=== PATIENT | male | born 1955 | race Caucasian/White ===

== ENCOUNTER 2020-10-16 19:08 | Emergency (ER) | payer BC ==
[2020-10-16 19:20] VITALS: PULSE 62; RESP 16; TEMP 97.8
[2020-10-16 19:22] VITALS: BP 124/74
[2020-10-16] MEDS: HYDROmorphone 0.5 MG/0.5 ML SYRINGE IVP STA ×2 (19:23→19:54)
--- NOTE | 2020-10-16 19:27 | XR ---
EXAMINATION TYPE: XR pelvis AP view DATE OF EXAM: 10/16/2020 COMPARISON: NONE HISTORY: Fall. Pain. TECHNIQUE: Single view FINDINGS: There is deformity of the right superior and inferior pubic rami bilaterally. The sacroilia c joints are normal. There is cortical step deformity. Proximal femurs are intact. IMPRESSION: Bilateral superior and inferior nondisplaced pubic rami fractures.
--- NOTE | 2020-10-16 19:29 | XR ---
EXAMINATION TYPE: XR chest 1V portable DATE OF EXAM: 10/16/2020 COMPARISON: 09/17/2015 HISTORY: Chest pain TECHNIQUE: FINDINGS: There is no heart failure nor confluent pneumonic infiltrate. Costophrenic angles are clear . There are calcified granulomata at the pulmonary leisa. Bony thorax is intact. IMPRESSION: No active cardiopulmonary disease. No evidence of pneumothorax. No change.
--- NOTE | 2020-10-16 19:40 | ED ---
General Adult HPI - General Chief complaint: Trauma Stated complaint: Fall from Tree Stand Time Seen by Provider: 10/16/20 19:12 Source: patient, EMS, RN notes reviewed, old records reviewed Mode of arrival: EMS Limitations: physical limitation - History of Present Illness Initial comments: 65-year-old male presenting status post fall from a tree stand. Estimated approximate height was 16 feet. Patient fell onto his right side, he is complaining of left upper abdominal pain and severe low back pain. He was transported in a c-collar by EMS. There is no reported medical problems, no anticoagulation. No loss of consciousness. Patient has no neck pain. His main complaint is low back pain. Apparently EMS was able to move and feel both lower extremities but extraction was prolonged due to the location of his injury. - Related Data Home Medications Medication Instructions Recorded Confirmed No Known Home Medications 10/16/20 10/16/20 Allergies Allergy/AdvReac Type Severity Reaction Status Date / Time No Known Allergies Allergy Verified 10/16/20 20:23 Review of Systems ROS Statement: Those systems with pertinent positive or pertinent negative responses have been documented in the HPI. ROS Other: All systems not noted in ROS Statement are negative. Past Medical History Past Medical History: No Reported History History of Any Multi-Drug Resistant Organisms: None Reported Past Surgical History: Unable to Obtain Smoking Status: Never smoker Past Alcohol Use History: None Reported Past Drug Use History: None Reported General Exam Limitations: physical limitation General appearance: alert, in no apparent distress Head exam: Present: atraumatic, normocephalic Eye exam: Present: normal appearance, PERRL, other (Dried blood from a superficial laceration nasal bridge) ENT exam: Present: normal exam Neck exam: Present: other. Absent: tenderness (C-collar placed by EMS) Respiratory exam: Present: normal lung sounds bilaterally. Absent: respiratory distress, chest wall tenderness Cardiovascular Exam: Present: regular rate, normal rhythm GI/Abdominal exam: Present: soft, tenderness (Minimal left upper quadrant tenderness), other (Pelvis is stable). Absent: distended Extremities exam: Present: normal inspection, normal capillary refill, other (Distal pulses intact) Back exam: Present: tenderness, paraspinal tenderness (Severe lower thoracic and lumbar tenderness ), vertebral tenderness (No step-off.) Neurological exam: Present: alert, oriented X3. Absent: motor sensory deficit Psychiatric exam: Present: normal affect, normal mood Skin exam: Present: warm, dry, intact Course Vital Signs 10/16/20 19:16 Temperature 97.8 F Pulse Rate 62 Respiratory 16 Rate Blood Pressure 124/74 O2 Sat by Pulse 96 Oximetry - Reevaluation(s) Reevaluation #1: 10/16/20 19:39 Patient states his tetanus is 1-year-old. Reevaluation #2: 10/16/201904 Case discussed with the trauma surgeon on-call Dr. Grullon. Reevaluation #3: 10/16/202013 Case discussed with Dr. Reinoso for covering for orthopedics, multiple discussions had regarding whether this patient should be transferred, ultimately felt that this patient would benefit from trauma orthopedic evaluation. Reevaluation #4: 10/16/202053 Case discussed with Dr. Greenwood covering for orthopedic trauma, will accept transfer to [facility] EKG Findings - EKG Comments: EKG Findings:: Sinus rhythm, inferior infarct, rate of 64, WI interval 200, QRS duration 80, QTC 416 Medical Decision Making - Medical Decision Making 65-year-old male status post fall from a tree stand. Workup is initiated as a priority 2 trauma. Patient has chest x-ray which is negative for traumatic injury, no displaced rib fractures, no pneumothorax or hemothorax. X-ray of the pelvis shows bilateral pubic rami fracture. CT brain negative for intracranial hemorrhage and CT cervical spine negative for fracture subluxation. CT of the chest and pelvis shows lumbar 1 mm subluxation L3 on L4, no acute fracture or dislocation. There is bilateral pubic rami fracture as well as fracture of the sacrum. There is adjacent hematoma measuring up to 2.[address] I discussed case both with orthopedics at this institution as well as trauma orthopedics at [facility] Dr. Greenwood. Patient will be transferred for further evaluation and treatment. Patient does have elevated white blood cell count 19, likely reactive. Stable hemoglobin, he has a mild transaminitis, he has microscopic hematuria with 95 red cells. He has been hemodynamically stable throughout his stay in the emergency department. He will be transferred to [facility]. - Lab Data Result diagrams: 10/16/20 19:23 10/16/20 19:23 Lab Results 10/16/20 10/16/20 10/16/20 Range/Units 19:23 19:23 19:23 WBC 19.2 H (3.8-10.6) k/uL RBC 5.12 (4.30-5.90) m/uL Hgb 15.9 (13.0-17.5) gm/dL Hct 48.2 (39.0-53.0) % MCV 94.1 (80.0-100.0) fL MCH 31.0 (25.0-35.0) pg MCHC 33.0 (31.0-37.0) g/dL RDW 13.1 (11.5-15.5) % Plt Count 233 (150-450) k/uL MPV 7.1 Neutrophils % 84 % Lymphocytes % 9 % Monocytes % 4 % Eosinophils % 1 % Basophils % 1 % Neutrophils # 16.2 H (1.3-7.7) k/uL Lymphocytes # 1.7 (1.0-4.8) k/uL Monocytes # 0.8 (0-1.0) k/uL Eosinophils # 0.1 (0-0.7) k/uL Basophils # 0.2 (0-0.2) k/uL PT 10.7 (9.0-12.0) sec INR 1.0 (<1.2) APTT 22.4 (22.0-30.0) sec Sodium 136 L (137-145) mmol/L Potassium 4.3 (3.5-5.1) mmol/L Chloride 106 (98-107) mmol/L Carbon Dioxide 25 (22-30) mmol/L Anion Gap 5 mmol/L BUN 15 (9-20) mg/dL Creatinine 0.89 (0.66-1.25) mg/dL Est GFR (CKD-EPI)AfAm >90 (>60 ml/min/1.73 sqM) Est GFR (CKD-EPI)NonAf >90 (>60 ml/min/1.73 sqM) Glucose 149 H (74-99) mg/dL Calcium 8.8 (8.4-10.2) mg/dL Total Bilirubin 1.1 (0.2-1.3) mg/dL AST 86 H (17-59) U/L ALT 67 H (4-49) U/L Alkaline Phosphatase 65 (38-126) U/L Troponin I (0.000-0.034) ng/mL Total Protein 7.1 (6.3-8.2) g/dL Albumin 4.0 (3.5-5.0) g/dL Urine Color Urine Appearance (Clear) Urine pH (5.0-8.0) Ur Specific Frierson (1.001-1.035) Urine Protein (Negative) Urine Glucose (UA) (Negative) Urine Ketones (Negative) Urine Blood (Negative) Urine Nitrite (Negative) Urine Bilirubin (Negative) Urine Urobilinogen (<2.0) mg/dL Ur Leukocyte Esterase (Negative) Urine RBC (0-5) /hpf Urine WBC (0-5) /hpf Ur Squamous Epith Cells (0-4) /hpf Urine Bacteria (None) /hpf Hyaline Casts (0-2) /lpf Urine Mucus (None) /hpf Urine Opiates Screen (NotDetected) Ur Oxycodone Screen (NotDetected) Urine Methadone Screen (NotDetected) Ur Propoxyphene Screen (NotDetected) Ur Barbiturates Screen (NotDetected) U Tricyclic Antidepress (NotDetected) Ur Phencyclidine Scrn (NotDetected) Ur Amphetamines Screen (NotDetected) U Methamphetamines Scrn (NotDetected) U Benzodiazepines Scrn (NotDetected) Urine Cocaine Screen (NotDetected) U Marijuana (THC) Screen (NotDetected) Serum Alcohol <10 mg/dL Blood Type Blood Type Confirm Blood Type Recheck Bld Type Recheck Status Antibody Screen Spec Expiration Date 10/16/20 10/16/20 10/16/20 Range/Units 19:23 19:23 19:26 WBC (3.8-10.6) k/uL RBC (4.30-5.90) m/uL Hgb (13.0-17.5) gm/dL Hct (39.0-53.0) % MCV (80.0-100.0) fL MCH (25.0-35.0) pg MCHC (31.0-37.0) g/dL RDW (11.5-15.5) % Plt Count (150-450) k/uL MPV Neutrophils % % Lymphocytes % % Monocytes % % Eosinophils % % Basophils % % Neutrophils # (1.3-7.7) k/uL Lymphocytes # (1.0-4.8) k/uL Monocytes # (0-1.0) k/uL Eosinophils # (0-0.7) k/uL Basophils # (0-0.2) k/uL PT (9.0-12.0) sec INR (<1.2) APTT (22.0-30.0) sec Sodium (137-145) mmol/L Potassium (3.5-5.1) mmol/L Chloride (98-107) mmol/L Carbon Dioxide (22-30) mmol/L Anion Gap mmol/L BUN (9-20) mg/dL Creatinine (0.66-1.25) mg/dL Est GFR (CKD-EPI)AfAm (>60 ml/min/1.73 sqM) Est GFR (CKD-EPI)NonAf (>60 ml/min/1.73 sqM) Glucose (74-99) mg/dL Calcium (8.4-10.2) mg/dL Total Bilirubin (0.2-1.3) mg/dL AST (17-59) U/L ALT (4-49) U/L Alkaline Phosphatase (38-126) U/L Troponin I <0.012 (0.000-0.034) ng/mL Total Protein (6.3-8.2) g/dL Albumin (3.5-5.0) g/dL Urine Color Urine Appearance (Clear) Urine pH (5.0-8.0) Ur Specific Fri[place] (1.001-1.035) Urine Protein (Negative) Urine Glucose (UA) (Negative) Urine Ketones (Negative) Urine Blood (Negative) Urine Nitrite (Negative) Urine Bilirubin (Negative) Urine Urobilinogen (<2.0) mg/dL Ur Leukocyte Esterase (Negative) Urine RBC (0-5) /hpf Urine WBC (0-5) /hpf Ur Squamous Epith Cells (0-4) /hpf Urine Bacteria (None) /hpf Hyaline Casts (0-2) /lpf Urine Mucus (None) /hpf Urine Opiates Screen (NotDetected) Ur Oxycodone Screen (NotDetected) Urine Methadone Screen (NotDetected) Ur Propoxyphene Screen (NotDetected) Ur Barbiturates Screen (NotDetected) U Tricyclic Antidepress (NotDetected) Ur Phencyclidine Scrn (NotDetected) Ur Amphetamines Screen (NotDetected) U Methamphetamines Scrn (NotDetected) U Benzodiazepines Scrn (NotDetected) Urine Cocaine Screen (NotDetected) U Marijuana (THC) Screen (NotDetected) Serum Alcohol mg/dL Blood Type O Positive Blood Type Confirm O Positive Blood Type Recheck No Previous Record Bld Type Recheck Status CABO Indicated Antibody Screen NEGATIVE Spec Expiration Date 10/19/2020232210/16/20 Range/Units 19:58 WBC (3.8-10.6) k/uL RBC (4.30-5.90) m/uL Hgb (13.0-17.5) gm/dL Hct (39.0-53.0) % MCV (80.0-100.0) fL MCH (25.0-35.0) pg MCHC (31.0-37.0) g/dL RDW (11.5-15.5) % Plt Count (150-450) k/uL MPV Neutrophils % % Lymphocytes % % Monocytes % % Eosinophils % % Basophils % % Neutrophils # (1.3-7.7) k/uL Lymphocytes # (1.0-4.8) k/uL Monocytes # (0-1.0) k/uL Eosinophils # (0-0.7) k/uL Basophils # (0-0.2) k/uL PT (9.0-12.0) sec INR (<1.2) APTT (22.0-30.0) sec Sodium (137-145) mmol/L Potassium (3.5-5.1) mmol/L Chloride (98-107) mmol/L Carbon Dioxide (22-30) mmol/L Anion Gap mmol/L BUN (9-20) mg/dL Creatinine (0.66-1.25) mg/dL Est GFR (CKD-EPI)AfAm (>60 ml/min/1.73 sqM) Est GFR (CKD-EPI)NonAf (>60 ml/min/1.73 sqM) Glucose (74-99) mg/dL Calcium (8.4-10.2) mg/dL Total Bilirubin (0.2-1.3) mg/dL AST (17-59) U/L ALT (4-49) U/L Alkaline Phosphatase (38-126) U/L Troponin I (0.000-0.034) ng/mL Total Protein (6.3-8.2) g/dL Albumin (3.5-5.0) g/dL Urine Color Yellow Urine Appearance Clear (Clear) Urine pH 5.5 (5.0-8.0) Ur Specific Frierson 1.028 (1.001-1.035) Urine Protein Trace H (Negative) Urine Glucose (UA) Negative (Negative) Urine Ketones Negative (Negative) Urine Blood Moderate H (Negative) Urine Nitrite Negative (Negative) Urine Bilirubin Negative (Negative) Urine Urobilinogen <2.0 (<2.0) mg/dL Ur Leukocyte Esterase Negative (Negative) Urine RBC 95 H (0-5) /hpf Urine WBC 2 (0-5) /hpf Ur Squamous Epith Cells <1 (0-4) /hpf Urine Bacteria Rare H (None) /hpf Hyaline Casts 11 H (0-2) /lpf Urine Mucus Occasional H (None) /hpf Urine Opiates Screen Detected H (NotDetected) Ur Oxycodone Screen Not Detected (NotDetected) Urine Methadone Screen Not Detected (NotDetected) Ur Propoxyphene Screen Not Detected (NotDetected) Ur Barbiturates Screen Not Detected (NotDetected) U Tricyclic Antidepress Not Detected (NotDetected) Ur Phencyclidine Scrn Not Detected (NotDetected) Ur Amphetamines Screen Not Detected (NotDetected) U Methamphetamines Scrn Not Detected (NotDetected) U Benzodiazepines Scrn Not Detected (NotDetected) Urine Cocaine Screen Not Detected (NotDetected) U Marijuana (THC) Screen Not Detected (NotDetected) Serum Alcohol mg/dL Blood Type Blood Type Confirm Blood Type Recheck Bld Type Recheck Status Antibody Screen Spec Expiration Date Critical Care Time Critical Care Time: Yes Total Critical Care Time: 35 Disposition Clinical Impression: Trauma, Bilateral pubic rami fractures, Sacral fracture, closed Disposition: OTHER INSTITUTION NOT DEFINED Condition: Stable Is patient prescribed a controlled substance at d/c from ED?: No Referrals: Rito Watts III, MD [Primary Care Provider] - 1-2 days - Out of Hospital Transfer - Req. Specs Out of Hospital Transfer - Requested Specifics: Other Emergency Center ([facility], Dr. Greenwood)
[2020-10-16 19:42] LABS: Basophils # (A) 0.2 k/uL (0-0.2); Basophils % (A) 1 %; Eosinophils # (A) 0.1 k/uL (0-0.7); Eosinophils % (A) 1 %; HCT 48.2 % (39.0-53.0); HGB 15.9 gm/dL (13.0-17.5); Lymphocytes # (A) 1.7 k/uL (1.0-4.8); Lymphocytes % (A) 9 %; MCV 94.1 fL (80.0-100.0); Mean Platelet Volume 7.1; Monocytes # (A) 0.8 k/uL (0-1.0); Monocytes % (A) 4 %; Neutrophils # (A) 16.2 k/uL (1.3-7.7); Neutrophils % (A) 84 %; Platelet Count 233 k/uL (150-450); RBC 5.12 m/uL (4.30-5.90); RDW 13.1 % (11.5-15.5); WBC 19.2 k/uL (3.8-10.6)
[2020-10-16 19:52] LABS: Partial Thromboplastin Time 22.4 sec (22.0-30.0); Prothrombin Time 10.7 sec (9.0-12.0)
[2020-10-16 19:54] LABS: ALT 67 U/L (4-49); AST 86 U/L (17-59); African American GFR (CKD) >90 (>60 ml/min/1.73 sqM); Alcohol <10 mg/dL; Alkaline Phosphatase 65 U/L (38-126); Anion Gap 5 mmol/L; Blood Urea Nitrogen 15 mg/dL (9-20); Calcium 8.8 mg/dL (8.4-10.2); Carbon Dioxide 25 mmol/L (22-30); Chloride 106 mmol/L (98-107); Glucose 149 mg/dL (74-99); Non-African American GFR(CKD) >90 (>60 ml/min/1.73 sqM); Sodium 136 mmol/L (137-145); Total Bilirubin 1.1 mg/dL (0.2-1.3); Total Protein 7.1 g/dL (6.3-8.2)
[2020-10-16 19:59] LABS: Potassium 4.3 mmol/L (3.5-5.1)
--- NOTE | 2020-10-16 20:13 | CT ---
EXAMINATION TYPE: CT thor lumbar spine w con DATE OF EXAM: 10/16/2020 COMPARISON: None HISTORY: Fall from 16 feet, back pain. CT DLP: 1644 mGycm Automated exposure control for dose reduction was used. CONTRAST: Performed , patient injected with mL of . Images were obtained from the level of T1 to assess to vertebra with the IV contrast present Isovue 1 00 mL. There is a few millimeter anterior subluxation of L3 in relation L4. There is some facet arthropathy in the lower lumbar spine. There is 15% wedging of T7 vertebra that is probably old. I see no acute c ompression fracture. There is no thoracic or lumbar paraspinal mass. The posterior elements are intac t. There is no evidence of spinal stenosis. IMPRESSION: There is degenerative first-degree L3-4 spondylolisthesis. No acute compression fracture seen. Degene rative hypertrophic anterior spurring in the lower thoracic spine.
--- NOTE | 2020-10-16 20:15 | CT ---
EXAMINATION TYPE: CT brain cspine wo con DATE OF EXAM: 10/16/2020 COMPARISON: None HISTORY: Fall from 16 feet. Headache. Neck pain CT DLP: 1938.1 mGycm Automated exposure control for dose reduction was used. Ventricles have normal size. There is no mass effect nor midline shift. There is no sign of intracran ial hemorrhage. The calvarium is intact. Skull base is intact. There is normal aeration of the mastoi d sinuses. Cervical vertebra have normal alignment. There is no compression fracture. There is C5-6 and C6-7 spu r formation. There is intact facet joints. There is mild cervical hypertrophic facet arthropathy. IMPRESSION: Spondylotic changes in the lower cervical spine. No fracture seen. Negative CT scan of the brain.
[2020-10-16 20:20] LABS: Appearance,Urine Clear (Clear); Bacteria,Urine Rare /hpf; Bilirubin,Urine Negative (Negative); Blood,Urine Moderate (Negative); Color,Urine Yellow; Glucose,Urine (UA) Negative (Negative); Hyaline Casts,Urine 11 /lpf (0-2); Ketones,Urine Negative (Negative); Leukocyte Esterase,Urine Negative (Negative); Mucus,Urine Occasional /hpf; Nitrite,Urine Negative (Negative); PH, Urine 5.5 (5.0-8.0); Protein,Urine Trace (Negative); RBC,Urine 95 /hpf (0-5); Specific Gravity,Urine 1.028 (1.001-1.035); Squamous Epithelial Cell,Urine <1 /hpf (0-4); Urobilinogen,Urine <2.0 mg/dL (<2.0); WBC,Urine 2 /hpf (0-5)
[2020-10-16] MEDS ORDERED: HYDROmorphone 0.5 MG/0.5 ML SYRINGE IM STA (20:20)
[2020-10-16] MEDS ORDERED: HYDROmorphone 0.5 MG/0.5 ML SYRINGE IVP STA ×2 (20:22→21:15)
[2020-10-16 20:24] LABS: Amphetamine Screen,Urine Not Detected (NotDetected); Barbiturate Screen,Urine Not Detected (NotDetected); Benzodiazepines Screen,Urine Not Detected (NotDetected); Cocaine Screen,Urine Not Detected (NotDetected); Methadone Screen, Urine Not Detected (NotDetected); Opiate Screen,Urine Detected (NotDetected); Oxycodone Screen, Urine Not Detected (NotDetected); Phencyclidine Screen,Urine Not Detected (NotDetected); Tricyclic Antidepressant,Urine Not Detected (NotDetected); Urn Cannabinoid Scrn Not Detected (NotDetected)
--- NOTE | 2020-10-16 20:31 | CT ---
EXAMINATION TYPE: CT ChestAbdPelvis w con DATE OF EXAM: 10/16/2020 COMPARISON: None HISTORY: Fall from 16 feet, back pain. CT DLP: 1644 mGycm Automated exposure control for dose reduction was used. CONTRAST: Performed with IV Contrast, patient injected with 100ml mL of Isovue 300. Images obtained from the thoracic inlet to the floor the pelvis with IV contrast. There is interstitial infiltrates and subsegmental atelectasis in the posterior lung carrero. Heart is normal. There is no pericardial effusion. There is no pneumothorax. Mediastinum is normal. Thoracic aorta is intact. There is no aneurysm or dissection. There is no pleural effusion. There is some fatty infiltration of the liver. Gallbladder appears normal. Spleen is intact. There is no pancreatic mass. Stomach is intact. Gallbladder appears normal in size. There is 1 cm calcified g allstone. There is no adrenal mass. Kidneys have normal size. There is left renal 5 cm parapelvic cyst. Ureters are not dilated. There is no hydronephrosis. Bladder distends smoothly. There is no retroperitoneal adenopathy. Abdominal aorta is atheromatous. There is no sign of thickened appendix. The shoulder joints visualized appear intact. I see no evidence of a rib fracture. There is no thoracic or lumbar compression fracture. There is a degenerative first-degree L3-4 spondy lolisthesis. There is facet arthropathy and moderate spinal stenosis at L3-4. There are bilateral superior pubic rami fractures. There is nondisplaced left inferior pubic ramus fr acture. The proximal femurs are intact. There is increased density at the floor the pelvis consistent with extraperitoneal acute hematoma adjacent to the pubic fractures. These measure up to 2.3 cm in t hickness. There is fracture of the lateral mass of the sacrum on the left side with cortical step def ormity. The sacroiliac joints appear anatomic. IMPRESSION: Pelvic fractures as above with extraperitoneal bilateral hematomas at the floor the pelvis. Cholelithiasis. Pulmonary interstitial infiltrates and subsegmental atelectasis. No pneumothorax. Fatty infiltration of the liver. Moderate L3-4 bony spinal stenosis.
== END 2020-10-16 21:26 | disposition other institution (70) ==
LOC: EC 19:08
DX: S32.10XA Unspecified fracture of sacrum, initial encounter for closed fracture (principal); S32.592A Other specified fracture of left pubis, initial encounter for closed fracture; S32.591A Other specified fracture of right pubis, initial encounter for closed fracture; D72.829 Elevated white blood cell count, unspecified; R31.29 Other microscopic hematuria; W17.89XA Other fall from one level to another, initial encounter
CPT/HCPCS: 36415; 86900; 86901; 80053; 84484; 85025; 85610; 85730; 86850; 81001; 80306; 80320; 72170; 71045; 72129; 72125; 72132; 70450; 71260; 74177; 99291; 96374; 96376; J1170; Q9967

== ENCOUNTER 2021-10-01 14:14 | Emergency (ER) | payer BC ==
[2021-10-01 14:44] VITALS: TEMP 97.7
[2021-10-01] MEDS ORDERED: LIDOCAINE 1% INJ 10MG/ML (20 ML MDV) SQ ONE (15:47)
[2021-10-01] MEDS ORDERED: BACITRACIN OINT 1 EACH PACKET TOPICAL ONE (15:47)
--- NOTE | 2021-10-01 16:26 | XR ---
Left hand. HISTORY: Pain following trauma the. COMPARISON: None. TECHNIQUE: 2 views of the left hand were obtained. There is a soft tissue defect over the volar aspect of the thumb. There is no radiopaque foreign body . An underlying osseous structures and articulations are normal. There is no acute fracture or disloc ation, cortical destruction or periosteal reaction. IMPRESSION: Soft tissue defect of the thumb without fracture or dislocation or intra-articular abnormality. No r adiopaque foreign body.
[2021-10-01] MEDS ORDERED: CEPHALEXIN 500 MG CAP PO STA (17:46)
--- NOTE | 2021-10-01 17:51 | ED ---
General Adult HPI - General Chief complaint: Wound/Laceration Stated complaint: L hand lac Time Seen by Provider: 10/01/21 15:29 Source: patient, RN notes reviewed Mode of arrival: ambulatory Limitations: no limitations - History of Present Illness Initial comments: 66-year-old male presents to the emergency department for evaluation of injury to the left thumb approximately 3 hours prior to arrival. Patient states the slide on his gun rapidly retracted and his thumb got caught. Bleeding controlled prior to arrival. Patient denies loss of sensation or movement. Last tetanus booster 2018. Patient denies any other injuries. - Related Data Previous Rx's Medication Instructions Recorded Cephalexin [Keflex] 500 mg PO BID 5 Days #10 cap 10/01/21 Allergies Allergy/AdvReac Type Severity Reaction Status Date / Time No Known Allergies Allergy Verified 10/16/20 20:23 Review of Systems ROS Statement: Those systems with pertinent positive or pertinent negative responses have been documented in the HPI. ROS Other: All systems not noted in ROS Statement are negative. Past Medical History Past Medical History: No Reported History Additional Past Medical History / Comment(s): Trauma patient 09/2020 fell out 16 foot tree stand. History of Any Multi-Drug Resistant Organisms: None Reported Past Surgical History: Unable to Obtain Additional Past Surgical History / Comment(s): trauma surgery, broken pelvis 09/2020 Smoking Status: Never smoker Past Alcohol Use History: None Reported Past Drug Use History: None Reported General Exam Limitations: no limitations (Well-developed, well-nourished male in no acute distress. Initial temperature 97.7, pulse 72, respirations 19, blood pressure 175/94, pulse ox 97% on room air.) General appearance: alert, in no apparent distress Respiratory exam: Present: normal lung sounds bilaterally. Absent: respiratory distress, wheezes, rales, rhonchi, stridor Cardiovascular Exam: Present: regular rate, normal rhythm, normal heart sounds. Absent: systolic murmur, diastolic murmur, rubs, gallop, clicks Right Forearm Wrist exam: Present: normal inspection Hand Wrist exam: Present: tenderness, laceration (Flap laceration on the palmar surface of the first digit, distal phalanx. No active bleeding. ), other (Distal sensation and range of motion intact.) Neuro motor exam: Present: thumb opposition intact, thumb IP flexion intact, thumb adduction intact, fingers 2-5 abduction intact Vascular: Present: radial pulse. Absent: vascular compromise, normal capillary refill Neurological exam: Present: alert, oriented X3, CN II-XII intact Psychiatric exam: Present: normal affect, normal mood Course Vital Signs 10/01/21 10/01/21 14:40 17:52 Temperature 97.7 F Pulse Rate 72 73 Respiratory 19 18 Rate Blood Pressure 175/94 148/98 O2 Sat by Pulse 97 96 Oximetry Procedures - Laceration Laceration #1 Consent Obtained: verbal consent Indication: laceration Site: hand (3 cm flap laceration to the palmar surface of first digit, distal phalanx) Size (cm): 3 Description: flap, irregular Depth: simple, single layer Anesthetic Used: lidocaine 1% Anesthesia Technique: nerve block Amount (mls): 3 Pre-repair: wound explored, irrigated extensively Type of Sutures: nylon Size of Sutures: 5-0 Number of Sutures: 5 Technique: simple, interrupted Patient Tolerated Procedure: well, no complications Additional Comments: Bacitracin dressing applied. Patient provided with for the splint to use as needed. Wound care instructions and follow-up were reviewed at length. Medical Decision Making - Medical Decision Making 66-year-old male presents to the emergency department for evaluation of flap laceration to the left thumb. Injury was sustained when the slide of a gun rapidly retracted. Upon exam, bleeding is controlled and patient reports minimal discomfort. Range of motion and distal sensation intact, no vascular compromise. X-ray of the left hand was obtained showing no fracture, dislocation, intra-articular abnormality, or radiopaque foreign body. Last TD was summer. Wound was anesthetized, thoroughly cleansed and irrigated, then 5 sutures were placed with adequate wound closure. Bacitracin dressing was applied and patient was instructed on wound care. Patient will be discharged home to follow up with his primary care provider for recheck in the next 1-2 days. Instructed to have sutures removed in 7-10 days. Return parameters were discussed in detail. Patient verbalizes understanding and agrees with plan. This patient's care was discussed with my attending Dr. Cline. - Radiology Data Radiology results: report reviewed, image reviewed X-ray of the left hand was reviewed. Report was reviewed in its entirety. Impression per Dr. Brito is soft tissue defect of the thumb without fracture or dislocation or intra-articular abnormality. No radiopaque foreign body. Disposition Clinical Impression: Laceration of thumb Disposition: HOME SELF-CARE Condition: Stable Instructions (If sedation given, give patient instructions): Care For Your Stitches (ED), Laceration (ED) Additional Instructions: Keep wound clean and dry. Change dressing twice daily. Follow-up with your primary care provider for a wound recheck in the next 1-2 days. Watch for signs of infection as discussed. Sutures removed in 7-10 days. Return to the emergency department with any new, worsening, or concerning symptoms. Prescriptions: Cephalexin [Keflex] 500 mg PO BID 5 Days #10 cap Is patient prescribed a controlled substance at d/c from ED?: No Referrals: Rito Watts III, MD [Primary Care Provider] - 1-2 days Time of Disposition: 17:50
[2021-10-01 17:52] VITALS: BP 148/98; PULSE 73; RESP 18
== END 2021-10-01 18:27 | disposition home or self-care (01) ==
LOC: EC 14:14
DX: S61.012A Laceration without foreign body of left thumb without damage to nail, initial encounter (principal); W26.8XXA Contact with other sharp object(s), not elsewhere classified, initial encounter
CPT/HCPCS: 73120; 12002; 99283; J2001

== ENCOUNTER → 2024-01-02 | Outpatient (CLI) | payer BC ==
--- NOTE | 2024-01-02 14:43 | CT ---
EXAMINATION TYPE: CT sinus wo con DATE OF EXAM: 01/02/2024 COMPARISON: CT brain on 10/16/2020. HISTORY: Chronic sinusitis. CT DLP: 529 mGycm. Automated Exposure Control for Dose Reduction was Utilized. TECHNIQUE: CT scan of the sinuses is performed without contrast, axial images are obtained, coronal r eformatted images are also reviewed. FINDINGS: There is some minimal mucosal thickening within the maxillary sinuses bilaterally. There ar e no air-fluid levels. The sinuses otherwise appear clear.. The ostiomeatal complex is patent bilate rally on the coronal images. Visualized portion of mastoid air cells show no abnormal opacification. The globes are intact bilate rally. The intracranial structures appear unremarkable on this limited examination. IMPRESSION: Minimal mucosal thickening within the maxillary sinuses bilaterally with no air-fluid levels and no a dditional acute findings identified.
== END | disposition home or self-care (01) ==
LOC: RADCTMAIN 14:08
PROVIDERS: ATTEND Otolaryngology
DX: J34.89 Other specified disorders of nose and nasal sinuses (principal); J31.0 Chronic rhinitis; J32.9 Chronic sinusitis, unspecified
CPT/HCPCS: 70486

== ENCOUNTER 2024-02-22 08:48 | Emergency (ER) | payer BC ==
--- NOTE | 2024-02-22 09:12 | ED ---
Abdominal Pain HPI - General Chief Complaint: Abdominal Pain Stated Complaint: Stomach pain, back pain Time Seen by Provider: 02/22/24 08:55 Source: patient, RN notes reviewed Mode of arrival: ambulatory Limitations: no limitations - History of Present Illness Initial Comments: This is a 68-year-old male who presents to the emergency department for right flank pain. States that it started yesterday. Pain wraps around to the abdomen as well. He was experiencing problems with urinary retention yesterday that have since improved. Reports associated nausea. Denies any history of kidney stones. MD Complaint: abdominal pain, flank pain - Related Data Home Medications Medication Instructions Recorded Confirmed Propranolol HCl [Inderal Xl] 80 mg PO HS 02/22/24 02/22/24 Propranolol [Inderal] 20 mg PO HS 02/22/24 02/22/24 Previous Rx's Medication Instructions Recorded Ibuprofen [Motrin] 800 mg PO Q8H PRN #30 tab 02/22/24 Allergies Allergy/AdvReac Type Severity Reaction Status Date / Time No Known Allergies Allergy Verified 02/22/24 11:24 Review of Systems ROS Statement: Those systems with pertinent positive or pertinent negative responses have been documented in the HPI. ROS Other: All systems not noted in ROS Statement are negative. Past Medical History Past Medical History: No Reported History Additional Past Medical History / Comment(s): Trauma patient 09/2020 fell out 16 foot tree stand. History of Any Multi-Drug Resistant Organisms: None Reported Past Surgical History: Unable to Obtain Additional Past Surgical History / Comment(s): trauma surgery, broken pelvis 09/2020 Past Psychological History: No Psychological Hx Reported Smoking Status: Never smoker Past Alcohol Use History: None Reported Past Drug Use History: None Reported General Exam Limitations: no limitations General appearance: alert, in no apparent distress Head exam: Present: atraumatic, normocephalic, normal inspection Respiratory exam: Present: normal lung sounds bilaterally. Absent: respiratory distress, wheezes, rales, rhonchi, stridor Cardiovascular Exam: Present: regular rate, normal rhythm, normal heart sounds. Absent: systolic murmur, diastolic murmur, rubs, gallop, clicks GI/Abdominal exam: Present: soft, tenderness (Right mid abdomen), normal bowel sounds. Absent: distended, guarding, rebound, rigid Back exam: Present: CVA tenderness (R). Absent: CVA tenderness (L) Neurological exam: Present: alert, oriented X3, CN II-XII intact Psychiatric exam: Present: normal affect, normal mood Skin exam: Present: warm, dry, intact, normal color. Absent: rash Course Vital Signs 02/22/24 02/22/24 02/22/24 08:49 11:25 11:30 Temperature 98.3 F Pulse Rate 81 Respiratory 16 Rate Blood Pressure 162/79 125/72 O2 Sat by Pulse 96 95 94 L Oximetry 02/22/24 02/22/24 02/22/24 11:45 12:00 12:15 Temperature Pulse Rate Respiratory Rate Blood Pressure 136/79 133/75 114/63 O2 Sat by Pulse 94 L 95 96 Oximetry 02/22/24 02/22/24 02/22/24 12:30 12:45 13:00 Temperature Pulse Rate 87 Respiratory 18 Rate Blood Pressure 117/85 O2 Sat by Pulse 95 95 96 Oximetry 02/22/24 13:15 Temperature Pulse Rate Respiratory Rate Blood Pressure O2 Sat by Pulse 96 Oximetry Medical Decision Making - Medical Decision Making This is a 68 year old male who presents to the emergency department for abdominal pain. Was pt. sent in by a medical professional or institution? @ -No Did you speak to anyone other than the patient for history? @ -No Did you review nursing and triage notes? @ -Yes, and I agree, it is accurate with regards to the patient's symptoms. Were old charts reviewed? @ -No Differential Diagnosis? @ -Differential Abdominal Pain Men: Appendicitis, cholecystitis, diverticulosis, ischemic bowel, pancreatitis, hepatitis, UTI, gastroenteritis, AAA, incarcerated hernia, bowel obstruction, constipation, inflammatory bowel, hepatitis, peptic ulcer disease, splenic infarction, perforated viscus, testicular torsion, this is not meant to be an all-inclusive list EKG interpreted by me (3pts min.)? @ -Not obtained X-rays interpreted by me (1pt min.)? @ -Not obtained CT interpreted by me (1pt min.)? @ -CT scan of the abdomen and pelvis obtained. My interpretation identifies no evidence of a ureteral calculus. U/S interpreted by me (1pt. min.)? @ -Not obtained What testing was considered but not performed? (CT, X-rays, U/S, labs)? Why? @ -None What meds were considered but not given? Why? @ -None Did you discuss the management of the patient with other professionals? @ -No Did you reconcile home meds? @ -No Was smoking cessation discussed for >3mins.? @ -No Was critical care preformed (if so, how long)? @ -No Were there social determinants of health that impacted care today? How? (Homelessness, low income, unemployed, alcoholism, drug addiction, transportation, low edu. Level, literacy, decrease access to med. care, [facility], rehab)? @ -No Was there de-escalation of care discussed even if they declined? (Discuss DNR or withdrawal of care, Hospice)? @ -No What co-morbidities impacted this encounter? (DM, HTN, Smoking, COPD, CAD, Cancer, CVA, Hep., AIDS, mental health diagnosis, sleep apnea, morbid obesity)? @ -None Was patient admitted / discharged? @ -Discharged. Lab work unremarkable. CT scan of the abdomen and pelvis obtained demonstrating prominent small bowel loops in the left mid abdomen containing fluid, and they advised correlation for an ileus. He also has minimal wall thickening of the distal ileum. He was noted to have gallstones without evidence of surrounding inflammation. There is no evidence of a ureteral calculus or irregularities to the bladder. We discussed admission versus d ischarge home due to the ileus. Patient's symptoms were well-controlled in the emergency department and he was comfortable with discharge home at that time. Advised that given the episodes of right upper quadrant pain he has had intermittently over the last couple of years, it is possible that this is related to the gallstones. He was given information for general surgery follow- up regarding the cholelithiasis. Prescription for ibuprofen provided with dosing instructions reviewed. Patient discharged home in stable condition. Undiagnosed new problem with uncertain prognosis? @ -None Drug Therapy requiring intensive monitoring for toxicity (Heparin, Nitro, Insulin, Cardizem)? @ -None Were any procedures done? @ -None Diagnosis/symptom? @ -Ileus, cholelithiasis Acute, or Chronic, or Acute on Chronic? @ -Acute Uncomplicated (without systemic symptoms) or Complicated (systemic symptoms)? @ -Uncomplicated Side effects of treatment? @ -None Exacerbation, Progression, or Severe Exacerbation] @ -Not applicable Poses a threat to life or bodily function? @ -No Return precautions reviewed in depth, the patient is instructed to return to the emergency department with any new, worsening, or concerning symptoms. Patient verbalized understanding. This case was discussed in detail with the attending ED physician, Dr. Bach. Presentation, findings, and treatment plan discussed in detail as well. - Lab Data Result diagrams: 02/22/24 09:39 02/22/24 09:39 Lab Results 02/22/24 02/22/24 02/22/24 Range/Units 09:39 09:39 09:39 WBC 8.2 (3.8-10.6) k/uL RBC 5.35 (4.30-5.90) m/uL Hgb 16.7 (13.0-17.5) gm/dL Hct 51.3 (39.0-53.0) % MCV 95.9 (80.0-100.0) fL MCH 31.2 (25.0-35.0) pg MCHC 32.5 (31.0-37.0) g/dL RDW 14.0 (11.5-15.5) % Plt Count 280 (150-450) k/uL MPV 7.4 Neutrophils % 64 % Lymphocytes % 23 % Monocytes % 7 % Eosinophils % 1 % Basophils % 1 % Neutrophils # 5.2 (1.3-7.7) k/uL Lymphocytes # 1.9 (1.0-4.8) k/uL Monocytes # 0.6 (0-1.0) k/uL Eosinophils # 0.1 (0-0.7) k/uL Basophils # 0.0 (0-0.2) k/uL Sodium 140 (137-145) mmol/L Potassium 4.4 (3.5-5.1) mmol/L Chloride 105 (98-107) mmol/L Carbon Dioxide 26 (22-30) mmol/L Anion Gap 9 mmol/L BUN 12 (9-20) mg/dL Creatinine 0.81 (0.66-1.25) mg/dL Est GFR (CKD-EPI)AfAm >90 (>60 ml/min/1.73 sqM) Est GFR (CKD-EPI)NonAf >90 (>60 ml/min/1.73 sqM) Glucose 105 H (74-99) mg/dL Plasma Lactic Acid Horace (0.7-2.0) mmol/L Calcium 9.0 (8.4-10.2) mg/dL Total Bilirubin 1.2 (0.2-1.3) mg/dL AST 52 (17-59) U/L ALT 81 H (4-49) U/L Alkaline Phosphatase 99 (38-126) U/L Total Protein 7.0 (6.3-8.2) g/dL Albumin 3.9 (3.5-5.0) g/dL Urine Color Yellow Urine Appearance Clear (Clear) Urine pH 6.0 (5.0-8.0) Ur Specific [place] 1.019 (1.001-1.035) Urine Protein Negative (Negative) Urine Glucose (UA) Negative (Negative) Urine Ketones Negative (Negative) Urine Blood Negative (Negative) Urine Nitrite Negative (Negative) Urine Bilirubin Negative (Negative) Urine Urobilinogen 2.0 (<2.0) mg/dL Ur Leukocyte Esterase Negative (Negative) 02/22/24 Range/Units 09:39 WBC (3.8-10.6) k/uL RBC (4.30-5.90) m/uL Hgb (13.0-17.5) gm/dL Hct (39.0-53.0) % MCV (80.0-100.0) fL MCH (25.0-35.0) pg MCHC (31.0-37.0) g/dL RDW (11.5-15.5) % Plt Count (150-450) k/uL MPV Neutrophils % % Lymphocytes % % Monocytes % % Eosinophils % % Basophils % % Neutrophils # (1.3-7.7) k/uL Lymphocytes # (1.0-4.8) k/uL Monocytes # (0-1.0) k/uL Eosinophils # (0-0.7) k/uL Basophils # (0-0.2) k/uL Sodium (137-145) mmol/L Potassium (3.5-5.1) mmol/L Chloride (98-107) mmol/L Carbon Dioxide (22-30) mmol/L Anion Gap mmol/L BUN (9-20) mg/dL Creatinine (0.66-1.25) mg/dL Est GFR (CKD-EPI)AfAm (>60 ml/min/1.73 sqM) Est GFR (CKD-EPI)NonAf (>60 ml/min/1.73 sqM) Glucose (74-99) mg/dL Plasma Lactic Acid Horace 1.2 (0.7-2.0) mmol/L Calcium (8.4-10.2) mg/dL Total Bilirubin (0.2-1.3) mg/dL AST (17-59) U/L ALT (4-49) U/L Alkaline Phosphatase (38-126) U/L Total Protein (6.3-8.2) g/dL Albumin (3.5-5.0) g/dL Urine Color Urine Appearance (Clear) Urine pH (5.0-8.0) Ur Specific [place] (1.001-1.035) Urine Protein (Negative) Urine Glucose (UA) (Negative) Urine Ketones (Negative) Urine Blood (Negative) Urine Nitrite (Negative) Urine Bilirubin (Negative) Urine Urobilinogen (<2.0) mg/dL Ur Leukocyte Esterase (Negative) - Radiology Data Radiology results: report reviewed, image reviewed Disposition Clinical Impression: Cholelithiasis, Ileus Disposition: HOME SELF-CARE Instructions (If sedation given, give patient instructions): Biliary Colic (ED), Gallstones (ED), Low Fat Diet (ED) Additional Instructions: Return to the emergency department with any new, worsening, or concerning symptoms. Alternate with ibuprofen and Tylenol as needed for pain relief. Try to follow a low-fat and bland diet for the meantime to reduce the risk of symptom recurrence. Contact general surgery as listed below for follow-up appointment regarding the gallstones. Follow up with your primary care provider in 1-2 days. Prescriptions: Ibuprofen [Motrin] 800 mg PO Q8H PRN #30 tab PRN Reason: Pain Is patient prescribed a controlled substance at d/c from ED?: No Referrals: Estuardo Edge MD [Primary Care Provider] - 1-2 days Jeremi Pierson MD [Medical Doctor] - 1-2 days Maximo Huizar MD [STAFF PHYSICIAN] - 1-2 days Time of Disposition: 11:54
[2024-02-22 09:20] VITALS: TEMP 98.3
--- NOTE | 2024-02-22 09:54 | CT ---
EXAMINATION TYPE: CT abdomen pelvis wo con DATE OF EXAM: 02/22/2024 COMPARISON: 10/16/2020 INDICATION: right flank pain DLP: 1064.4 mGycm, Automated exposure control for dose reduction was used. CONTRAST: 0 mL of Isovue 300. Study performed without Oral Contrast TECHNIQUE: Axial images were obtained from above the diaphragm to the pubic rami in the axial plane a t 5 mm thick sections. Reconstructed images are reviewed on the computer in the coronal plane. FINDINGS: Limited CT sections are obtained the lung bases. The lung bases are clear. Coronary artery calcific ation is noted. CT ABDOMEN: Liver: There is moderate fatty infiltration of the liver Spleen: Normal Pancreas: Normal Adrenal glands: The adrenal glands are normal. Gallbladder: Gallstones are present. Kidneys: No masses are evident. No hydronephrosis is present. Is 3.3 cm cyst in the mid to inferior pole left kidney. No renal stones are evident. Aorta: Vascular calcification is within the aorta. Inferior vena cava: Normal. CT PELVIS: There are somewhat prominent small bowel loops in the left mid abdomen containing fluid. Correlate fo r ileus. No suspicious acute obstruction evident. Minimal wall thickening of the distal ileum. No zon e of transition is evident. The study is without oral contrast limiting bowel evaluation. Appendix: Not identified. No dilated tubular structure or inflammatory change is evident Clinical man agement and correlation with the patient's surgical history is recommended for any findings suspiciou s for appendicitis. Urinary bladder: Normal. Genitourinary structures: Prostate is prominent and contains a calcification. Osseous structures: No suspicious lytic or sclerotic lesions. There is a pin through the left sacroil iac joint IMPRESSION: 1. Clinical consideration for ileitis. Some mild jejunal ileus may be present. 2. Moderate fatty infiltration of liver. 3. Stable left renal cyst
[2024-02-22 09:57] LABS: Basophils % (A) 1 %; Eosinophils # (A) 0.1 k/uL (0-0.7); Eosinophils % (A) 1 %; HCT 51.3 % (39.0-53.0); HGB 16.7 gm/dL (13.0-17.5); Lymphocytes # (A) 1.9 k/uL (1.0-4.8); Lymphocytes % (A) 23 %; MCH 31.2 pg (25.0-35.0); MCHC 32.5 g/dL (31.0-37.0); MCV 95.9 fL (80.0-100.0); Mean Platelet Volume 7.4; Monocytes # (A) 0.6 k/uL (0-1.0); Monocytes % (A) 7 %; Neutrophils # (A) 5.2 k/uL (1.3-7.7); Neutrophils % (A) 64 %; Platelet Count 280 k/uL (150-450); RBC 5.35 m/uL (4.30-5.90); WBC 8.2 k/uL (3.8-10.6)
[2024-02-22 10:08] LABS: ALT 81 U/L (4-49); AST 52 U/L (17-59); African American GFR (CKD) >90 (>60 ml/min/1.73 sqM); Albumin 3.9 g/dL (3.5-5.0); Alkaline Phosphatase 99 U/L (38-126); Anion Gap 9 mmol/L; Blood Urea Nitrogen 12 mg/dL (9-20); Carbon Dioxide 26 mmol/L (22-30); Chloride 105 mmol/L (98-107); Glucose 105 mg/dL (74-99); Non-African American GFR(CKD) >90 (>60 ml/min/1.73 sqM); Potassium 4.4 mmol/L (3.5-5.1); Sodium 140 mmol/L (137-145); Total Bilirubin 1.2 mg/dL (0.2-1.3)
[2024-02-22 10:13] LABS: Appearance,Urine Clear (Clear); Bilirubin,Urine Negative (Negative); Blood,Urine Negative (Negative); Color,Urine Yellow; Glucose,Urine (UA) Negative (Negative); Ketones,Urine Negative (Negative); Leukocyte Esterase,Urine Negative (Negative); Nitrite,Urine Negative (Negative); Protein,Urine Negative (Negative); Specific Gravity,Urine 1.019 (1.001-1.035)
[2024-02-22] MEDS: SODIUM CHLORIDE 0.9% 1,000 ML IV STA (11:18)
[2024-02-22] MEDS: KETOROLAC 15 MG/ML 1 ML VIAL IVP STA ×2 (11:19→13:30)
[2024-02-22] MEDS: MORPHINE SULFATE 4 MG/ML SYRINGE IVP STA (11:19)
[2024-02-22] MEDS: HYDROmorphone 0.5 MG/0.5 ML SYRINGE IVP STA (13:03)
[2024-02-22] MEDS: ONDANSETRON 4 MG ODT STARTER PACK 2 TAB BTL PO STA (13:30)
[2024-02-22] MEDS: ACET/COD 300 MG/30 MG STARTER PACK 6 TAB BTL PO STA (13:30)
[2024-02-22 13:34] VITALS: BP 117/85; PULSE 87; RESP 18
== END 2024-02-22 13:35 | disposition home or self-care (01) ==
LOC: EC 08:48
DX: K80.20 Calculus of gallbladder without cholecystitis without obstruction (principal); K56.7 Ileus, unspecified
CPT/HCPCS: 36415; 80053; 83605; 85025; 81003; 74176; 99284; 96374; 96375; 96376; 96361; J2270; J1885; S0119

== ENCOUNTER 2024-11-15 12:17 | Emergency (ER) | payer BC, MEDICARE ==
[2024-11-15 12:51] VITALS: TEMP 98.4
--- NOTE | 2024-11-15 15:12 | ED ---
Back Pain HPI - General Source: patient, RN notes reviewed Mode of arrival: ambulatory Limitations: no limitations - History of Present Illness MD Complaint: back pain, back injury Onset/Timin -: days(s) <Elvin Wilson - Last Filed: 11/15/24 15:10> <Leoan Pierre - Last Filed: 11/17/24 00:22> - General Chief Complaint: Back Pain/Injury Stated Complaint: Back pain Time Seen by Provider: 11/15/24 12:32 - History of Present Illness Initial Comments: Quick note: This is a 69-year-old male with history of pelvic fracture 4 years ago presenting with low back pain (08/28) x 3 days. 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 Endorses use of "pain pills" with minimal relief. Denies saddle paresthesia or urinary incontinence/retention. (Elvin Wilson) 69-year-old male presenting with chief complaint of lower back pain. 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 He does have history of lumbar spine surgery. He denies any radiation of pain down the leg. No loss of bowel or bladder control or saddle paresthesia. No abdominal pain. No dysuria or hematuria. No numbness tingling or weakness. (Leona Pierre) - Related Data Home Medications Medication Instructions Recorded Confirmed Propranolol HCl [Inderal Xl] 80 mg PO HS 02/22/24 02/22/24 Propranolol [Inderal] 20 mg PO HS 02/22/24 02/22/24 Previous Rx's Medication Instructions Recorded Ibuprofen [Motrin] 800 mg PO Q8H PRN #30 tab 02/22/24 Cyclobenzaprine [Flexeril] 10 mg PO HS PRN #10 tab 11/15/24 Lidocaine 5% Patch [Lidoderm 5% 1 patch TOPICAL DAILY PRN #30 patch 11/15/24 Patch] Allergies Allergy/AdvReac Type Severity Reaction Status Date / Time No Known Allergies Allergy Verified 11/15/24 12:51 Review of Systems ROS Other: All systems not noted in ROS Statement are negative. <Elvin Wilson - Last Filed: 11/15/24 15:10> ROS Other: All systems not noted in ROS Statement are negative. <Leona Pierre - Last Filed: 11/17/24 00:22> ROS Statement: Those systems with pertinent positive or pertinent negative responses have been documented in the HPI. Past Medical History Past Medical History: No Reported History Additional Past Medical History / Comment(s): Trauma patient 09/2020 fell out 16 foot tree stand. History of Any Multi-Drug Resistant Organisms: None Reported Past Surgical History: Unable to Obtain Additional Past Surgical History / Comment(s): trauma surgery, broken pelvis 09/2020 Past Psychological History: No Psychological Hx Reported Smoking Status: Never smoker Past Alcohol Use History: None Reported Past Drug Use History: None Reported <Elvin Wilson - Last Filed: 11/15/24 15:10> General Exam Limitations: no limitations <Elvin Wilson - Last Filed: 11/15/24 15:10> General appearance: alert, in no apparent distress Head exam: Present: atraumatic, normocephalic, normal inspection Eye exam: Present: normal appearance, EOMI Neck exam: Present: normal inspection. Absent: meningismus Respiratory exam: Present: normal lung sounds bilaterally. Absent: respiratory distress, wheezes, rales, rhonchi, stridor Cardiovascular Exam: Present: regular rate, normal rhythm, normal heart sounds. Absent: systolic murmur, diastolic murmur, rubs, gallop, clicks Back exam: Present: normal inspection, tenderness Neurological exam: Present: alert, oriented X3 Psychiatric exam: Present: normal affect, normal mood Skin exam: Present: warm, dry <Leona Pierre - Last Filed: 11/17/24 00:22> - General Exam Comments Initial Comments: Visual Physical Exam Vital signs reviewed General: Well-appearing, nontoxic, no acute distress. Head: Normocephalic, atraumatic Eyes: PERRLA, EOMI ENT: Airway patent Chest: Nonlabored breathing Skin: No visual rash, normal skin tone Neuro: Alert and oriented 3 Musculoskeletal: No gross abnormalities (Elvin Wilson) Course Vital Signs 11/15/24 11/15/24 12:49 18:02 Temperature 98.4 F 98.4 F Pulse Rate 57 L 56 L Respiratory 18 19 Rate Blood Pressure 148/79 115/73 O2 Sat by Pulse 97 100 Oximetry Medical Decision Making <Elvin Wilson - Last Filed: 11/15/24 15:10> <Leona Pierre - Last Filed: 11/17/24 00:22> - Medical Decision Making I completed the quick note portion of this chart signed DEMARCUS Navarro (Elvin Wilson) Was pt. sent in by a medical professional or institution (KAREN Priest, CERTIFIED ANESTHESIOLOGIST ASSISTANT, urgent care, hospital, or prison...) When possible be specific @ -No Did you speak to anyone other than the patient for history (EMS, parent, family, police, friend...)? What history was obtained from this source @ -No Did you review nursing and triage notes (agree or disagree)? Why? @ -I reviewed and agree with nursing and triage notes Were old charts reviewed (outside hosp., previous admission, EMS record, old EKG, old radiological studies, urgent care reports/EKG's, prison records)? Report findings @ -No old charts were reviewed Differential Diagnosis (chest pain, altered mental status, abdominal pain women, abdominal pain men, vaginal bleeding, weakness, fever, dyspnea, syncope, headache, dizziness, GI bleed, back pain, seizure, CVA, palpatations, mental health, musculoskeletal)? @ - MDM Differential Back Pain: Strain, zoster, cauda equina syndrome, epidural abscess, vertebral osteomyelitis, discitis, fracture, subluxation, disc herniation, DJD, spinal stenosis, dissection, AAA, pancreatitis, peptic ulcer disease, pyelonephritis, kidney stone this is not meant to be an all-inclusive list. EKG interpreted by me (3pts min.). @ -As above X-rays interpreted by me (1pt min.). @ -X-ray shows cortical irregularity involving T12 vertebral body correlate with pain from fracture. Moderate multilevel degeneration changes of the spine. Grade 1 anterolisthesis of L3 on L4 CT interpreted by me (1pt min.). @ -None done U/S interpreted by me (1pt. min.). @ -None done What testing was considered but not performed or refused? (CT, X-rays, U/S, labs)? Why? @ -None What meds were considered but not given or refused? Why? @ -None Did you discuss the management of the patient with other professionals (professionals i.e. , PA, CERTIFIED ANESTHESIOLOGIST ASSISTANT, lab, RT, psych nurse, social media analyst, ring maker, teacher, first officer, corrections caseworker)? Give summary @ -No Was smoking cessation discussed for >3mins.? @ -No Was critical care preformed (if so, how long)? @ -No Were there social determinants of health that impacted care today? How? (Homelessness, low income, unemployed, alcoholism, drug addiction, transportation, low edu. Level, literacy, decrease access to med. care, half-way, rehab)? @ -No Was there de-escalation of care discussed even if they declined (Discuss DNR or withdrawal of care, Hospice)? DNR status @ -No What co-morbidities impacted this encounter? (DM, HTN, Smoking, COPD, CAD, Cancer, CVA, ARF, Chemo, Hep., AIDS, mental health diagnosis, sleep apnea, morbid obesity)? @ -None Was patient admitted / discharged? Hospital course, mention meds given and route, prescriptions, significant lab abnormalities, going to OR and other pertinent info. @ -69-year-old male presenting with chief complaint of lower back pain. States that he felt a pop in his lower back when he bent down to pick something up. He does have history of previous lumbar spine surgery. No red flag symptoms. Workup is initiated by triage. X-rays are obtained fixation hardware in the lumbar spine appears intact. There is evidence of possible compression fracture at T12. There are also degenerative changes noted. Patient states he has no knowledge of a previous compression fracture. He is treated with pain medication and on reassessment reports improvement in his symptoms. He will follow-up with his surgeon. Follow-up with PCP. Report back to ER with any new or worsening symptoms. Discussed return parameters and answered all questions. Patient conveyed verbal understanding and agreed to the plan. I discussed this case in detail with my attending Dr. Romero Undiagnosed new problem with uncertain prognosis? @ -No Drug Therapy requiring intensive monitoring for toxicity (Heparin, Nitro, Insulin, Cardizem)? @ -No Were any procedures done? @ -No Diagnosis/symptom? @ -Compression fracture T12 Acute, or Chronic, or Acute on Chronic? @ -Acute Uncomplicated (without systemic symptoms) or Complicated (systemic symptoms)? @ -Uncomplicated Side effects of treatment? @ -No Exacerbation, Progression, or Severe Exacerbation? @ -No Poses a threat to life or bodily function? How? (Chest pain, [place], MS, pneumonia, PE, COPD, DKA, ARF, appy, cholecystitis, CVA, Diverticulitis, Homicidal, Suicidal, threat to staff... and all critical care pts) @ -Low likelihood (Leona Pierre) Disposition <Elvin Wilson - Last Filed: 11/15/24 15:10> Is patient prescribed a controlled substance at d/c from ED?: No Time of Disposition: 17:38 <Leona Pierre - Last Filed: 11/17/24 00:22> Clinical Impression: T12 compression fracture, Mechanical back pain Disposition: HOME SELF-CARE Condition: Good Instructions (If sedation given, give patient instructions): Vertebral Compression Fracture (ED), Acute Low Back Pain (ED) Additional Instructions: Follow-up with your orthopedic surgeon. Report back to ER with any new or worsening symptoms. Take medication as prescribed. Do not take cyclobenzaprine before driving or operating heavy machinery as it may cause drowsiness Prescriptions: Cyclobenzaprine [Flexeril] 10 mg PO HS PRN #10 tab PRN Reason: Spasms Lidocaine 5% Patch [Lidoderm 5% Patch] 1 patch TOPICAL DAILY PRN #30 patch PRN Reason: Pain Referrals: Estuardo Edge MD [Primary Care Provider] - 1-2 days Rommel Greenwood DO [REFERRING] - 1-2 days
--- NOTE | 2024-11-15 16:07 | XR ---
EXAMINATION TYPE: XR thoracic spine 2V, XR lumbosacral spine min 4V DATE OF EXAM: 11/15/2024 3:37 PM COMPARISON: 02/22/2024 CLINICAL INDICATION: Male, 69 years old with history of Low back "pop" after bending over; [facility] TECHNIQUE: XR thoracic spine 2V, XR lumbosacral spine min 4V 2 views of the thoracic spine and 4 view s of the lumbar spine. FINDINGS: No evidence of acute fracture. Wedging of multiple midthoracic spine. There is grade 1 anterolisthesi s of L3 and L4. There is cortical irregularity involving the T12 superior and anterior endplate sugge sting compression deformity. Scattered osteophyte formation along the anterior and lateral aspects of the vertebral bodies. Neural foramen are patent given limitations of this exam. Spinal canal appears patent. Fixation hardware in the lumbar spine. Appears intact. IMPRESSION: 1. Cortically irregularity involving T12 vertebral body correlate with pain from fracture. 2. Moderate multilevel degeneration changes of the spine. 3. Grade 1 atrial listhesis of L3 on L4. [facility], , 11/15/2024 4:05 PM
[2024-11-15] MEDS: MORPHINE SULFATE 2 MG/ML SYRINGE IM STA (17:13)
[2024-11-15] MEDS: KETOROLAC 15 MG/ML 1 ML VIAL IM STA (17:14)
[2024-11-15] MEDS: LIDOCAINE 4% PATCH TOPICAL ONE (17:14)
[2024-11-15 18:08] VITALS: BP 115/73; PULSE 56; RESP 19
== END 2024-11-15 18:10 | disposition home or self-care (01) ==
LOC: EC 12:17
DX: S22.089A Unspecified fracture of T11-T12 vertebra, initial encounter for closed fracture (principal); X50.1XXA Overexertion from prolonged static or awkward postures, initial encounter
CPT/HCPCS: 72070; 72110; 99283; 96372; J2270; J1885